=== PATIENT | female | born 1990 | race Caucasian/White ===

== ENCOUNTER 2017-09-05 16:42 | Inpatient (IN) | payer BC, MEDICAID ==
[2017-09-05 17:04] VITALS: BMI 21.7
[2017-09-05] MEDS ORDERED: Lactated Ringer's 1,000 ML IV SCH (17:15)
[2017-09-05 17:30] LABS: BASO # 0.1 K/uL (0.0-0.2); BASO % 0.7 % (0.0-2.0); EOS # 0.1 K/uL (0.0-0.7); EOS % 0.4 % (0.0-4.0); HEMOGLOBIN 10.5 g/dL (11.0-16.0); LYMPH # 2.8 K/uL (1.0-4.3); LYMPH % 17.4 % (20.0-40.0); MEAN CELL VOLUME 65.4 fL (81.0-99.0); MEAN CORPUSCULAR HEMOGLOBIN 20.1 pg (27.0-31.0); MEAN CORPUSCULAR HGB CONC 30.7 g/dL (33.0-37.0); MEAN PLATELET VOLUME 9.3 fL (7.2-11.7); MONO # 0.9 K/uL (0.0-0.8); NEUT # 11.9 K/uL (1.8-7.0); NEUT % 75.5 % (50.0-75.0); NRBC % 0.1 % (0.0-2.0); RBC 5.22 Mil/uL (3.80-5.20); RED CELL DISTRIBUTION WIDTH 18.6 % (11.5-14.5); WHITE BLOOD COUNT 15.8 K/uL (4.8-10.8)
--- NOTE | 2017-09-05 18:24 | OBADHP ---
Datetime: 09/05/2017 17:00 Admit Comment, IP Provider: chief complaint-leakki ng of fluid HPI y/o at 38.1 wga with c/o leaking of fluid since 4.30 pm Patient denies vaginal bleeding or loss of fluid has had ctx since 11am cxours eprenatal care with dr au' hx of anemia on iron PMH GERD PSH denies OBGYN HX Social hx denies tobacco,alcohol or illcit drug use Exam see exam section A/P 26 y/o at 38.wga with prom.early labor,gbs neg -admit -see orders -mangement as per dr angely au aware Pelvic Type - PN: Adequate Extremities - PN: Normal Abdomen - PN: Normal Back - PN: Normal Lungs - PN: Normal Heart - PN: Normal Neurologic - PN: Normal General - PN: Normal Amniotic Fluid Color, Provider: Clear Membranes, Provider: Ruptured Contraction Comments Provider: every 2-3min Gestation - Est Wks by US: 38.1 Pool Provider: Positive Nitrazine Provider: Positive Ferning Provider: Positive IP Hx Assessment: The History has been Reviewed and is Current Vital Signs Provider: Reviewed; Within Normal Limits IP Chief Complaint: Suspected ruptured membranes FHR Category Provider Fetus A: Category I Dilatation, Provider: 1 Effacement, Provider: 70 Station, Provider: -1 Genitourinary Exam: Abnormal DTRs - PN: Normal EGA AdmitDate IP: 38.1 IP Adm Impression: Term, intrauterine ; Ruptured Membranes IP Admit Plan: Admit to unit; Initiate labor protocol
[2017-09-05] MEDS ORDERED: Bupivacaine 0.125%/FentaNYL 200 ML EPI ONE (18:45)
[2017-09-05] MEDS ORDERED: Bupivacaine HCl 0.25% PF (10 ml) Inj ONE ×2 (18:45→20:40)
[2017-09-05 20:49] LABS: SQUAMOUS EPITHIAL < 1 /hpf (0-5); URINE BACTERIA RARE (<OCC); URINE BILIRUBIN NEGATIVE (NEGATIVE); URINE BLOOD NEGATIVE (NEGATIVE); URINE CLARITY Clear (Clear); URINE COLOR Yellow (YELLOW); URINE GLUCOSE (UA) NORMAL (Normal); URINE LEUKOCYTE ESTERASE NEG Leu/uL (Negative); URINE NITRATE NEGATIVE (NEGATIVE); URINE PROTEIN NEGATIVE (NEGATIVE); URINE UROBILINOGEN NORMAL mg/dL (0.2-1.0)
[2017-09-05] MEDS ORDERED: Measles, Mumps, and Rubella 0.5 ML VIAL SC ONE (21:40)
[2017-09-05] MEDS ORDERED: Oxycodone/Acetaminophen 5/325 mg Tab PO PRN (21:40)
--- NOTE | 2017-09-05 21:40 | OBADHP ---
Datetime: 09/05/2017 21:37 FHR - Baseline A Provider: 130 Dilatation, Provider: 10 Effacement, Provider: 100 Station, Provider: 0 Datetime: 09/05/2017 17:00 Admit Comment, IP Provider: chief complaint-leakki ng of fluid HPI y/o at 38.1 wga with c/o leaking of fluid since 4.30 pm Patient denies vaginal bleeding or loss of fluid has had ctx since 11am cxours eprenatal care with dr au' hx of anemia on iron PMH GERD PSH denies OBGYN HX Social hx denies tobacco,alcohol or illcit drug use Exam see exam section A/P 26 y/o at 38.wga with prom.early labor,gbs neg -admit -see orders -mangement as per dr angely au aware agrees with above EGA AdmitDate IP: 38.1
--- NOTE | 2017-09-05 21:41 | OBPN ---
Datetime: 09/05/2017 21:37 IP Progress Impression: Normal progression of labor IP Procedures: Sterile Vag Exam FHR - Baseline A Provider: 130 IP Progress Note Comment: pt was examined at bed side ve 10/100/0 anticip[ate Dilatation, Provider: 10 Effacement, Provider: 100 Station, Provider: 0 Datetime: 09/05/2017 17:00 Pool Provider: Positive Nitrazine Provider: Positive Ferning Provider: Positive Membranes, Provider: Ruptured Amniotic Fluid Color, Provider: Clear Contraction Comments Provider: every 2-3min Gestation - Est Wks by US: 38.1 Vital Signs Provider: Reviewed; Within Normal Limits FHR Category Provider Fetus A: Category I
[2017-09-06 08:02] LABS: BASO % 0.3 % (0.0-2.0); EOS % 0.3 % (0.0-4.0); LYMPH # 2.4 K/uL (1.0-4.3); LYMPH % 13.4 % (20.0-40.0); MEAN CELL VOLUME 64.9 fL (81.0-99.0); MEAN CORPUSCULAR HEMOGLOBIN 20.5 pg (27.0-31.0); MEAN CORPUSCULAR HGB CONC 31.7 g/dL (33.0-37.0); MEAN PLATELET VOLUME 9.8 fL (7.2-11.7); MONO # 0.9 K/uL (0.0-0.8); MONO % 5.1 % (0.0-10.0); NEUT # 14.7 K/uL (1.8-7.0); NEUT % 80.9 % (50.0-75.0); NRBC % 0.1 % (0.0-2.0); RBC 3.92 Mil/uL (3.80-5.20); RED CELL DISTRIBUTION WIDTH 18.2 % (11.5-14.5); WHITE BLOOD COUNT 18.2 K/uL (4.8-10.8)
[2017-09-06] MEDS ORDERED: Benzocaine/Menthol 20%-0.5% Topical Spray (60 ml) EXT PRN (09:42)
--- NOTE | 2017-09-06 20:07 | OBPPN ---
Datetime: 09/06/2017 20:05 PP Pain Prov: Within normal limits PP Nausea Prov: Denies PP Flatus Prov: Yes PP Abdomen/Uterus Prov: Normal PP Lochia Prov: Normal PP Extremities Prov: Normal PP Comments Phys Exam Prov: fudus below umblicus ext o edema,no calf ten PP Impression Prov: Normal progression PP Plan Prov: Continue present management PP Progress Note Prov: pt was seen at bed side, pain under control,no n/v, tolerating deit,voiding,m in lochi, flat+ ppd#1 reg deit cnc cont pp care cont painman Vital Signs Provider PP: Reviewed; Within Normal Limits
--- NOTE | 2017-09-06 20:09 | OBDS ---
DELIVERY PERSONNEL Nurse Wood Model Builder Certified: n/a Delivery Doctor: Benito Gaspar MD Scrub Nurse: n/bassem Supervisor Color Paste Mixing: Barbara Amin RN Anesthesiologist: DR BERNAL Forming Department End Finder: same Resident: DR. BENDER MATERNAL INFORMATION Delivery Anesthesia: Epidural Medications in Delivery: PITOCIN Estimated Blood Loss (ml): 400 Placenta Cultured: Yes Maternal Complications: None Provider Comments: due to ctg ii tracing and maernal exhaustion vaccum was applied. rml made befor. peads in the room. baby deliverdin bishop.cord gas taken placente to path_nd clean 9/9 no com LABOR SUMMARY EDC: 09/18/2017 00:00 No. Babies in Womb: 1 Attempted: No Labor Anesthesia: Epidural LABOR INFORMATION Onset of Labor: 09/05/2017 11:00 Complete Dilatation: 09/05/2017 20:30 Oxytocin: N/A Group B Beta Strep: Negative Steroids Given: None MEMBRANES Membranes Rupture Method: Spontaneous Rupture of Membranes: 09/05/2017 16:30 Length of Rupture (hrs): 5.52 Amniotic Fluid Color: Clear Amniotic Fluid Amount: Moderate Amniotic Fluid Odor: Normal STAGES OF LABOR Stage 1 hrs: 9 Stage 1 min: 30 Stage 2 hrs: 1 Stage 2 min: 31 Stage 3 hrs: 0 Stage 3 min: 2 Total Time in Labor hrs: 11 Total Time in Labor min: 3 VAGINAL DELIVERY Episiotomy: Right Mediolateral Laceration Extension: N/A Laceration Repair: Yes Laceration Repair Note: rpeaired with 2 vicry and 3 hromic Initial Vag Sponge Count: 10+1Lap Final Vag Sponge Count: 10+1Lap Initial Vag Sharps Count: 0 Final Vag Sharps Count: 4 Sponge Count Correct: Yes; Vaginal Sweep Performed Sharps Count Correct: Yes BABY A INFORMATION Delivery Date/Time: 09/05/2017 22:01 Method of Delivery: Vaginal Born in Route : No : N/A Forceps: N/A Vacuum Extraction: Successful Shoulder Dystocia : No ASSISTED DELIVERY BABY A Indication for Assisted Delivery: maternal exhaustion and CTG II Tracing Catheter Prior to Procedure: Yes Station Vacuum/Forcep Apply: +2 Position Vacuum/Forcep Apply: Left Occipital Anterior Vacuum Number of Pulls: 2 Vacuum Number of PopOffs: 1 Vacuum Maximum Pressure Obtained: 40 Reduce Pressure btwn Ctx: Yes Vacuum Door Slinger: kiwi pump Total Time Vacuum Applied: 30 sec SHOULDER DYSTOCIA BABY A Delivery Date/Time: 09/05/2017 22:01 PRESENTATION/POSITION BABY A Presentation: Cephalic Cephalic Presentation: Vertex Vertex Position: Left Occipital Anterior Breech Presentation: N/A PLACENTA INFORMATION BABY A Placenta Delivery Time : 09/05/2017 22:03 Placenta Method of Delivery: Spontaneous Placenta Status: Delivered SCORES BABY A Heart Rate 1 min: >100 bpm Resp Effort 1 min: Good Cry Reflex Irritability 1 min: Cough or Sneeze or Pulls Away Muscle Tone 1 min: Active Motion Color 1 min: Body [place], Extremities Blue SCORE 1 MIN: 9 Heart Rate 5 min: >100 bpm Resp Effort 5 min: Good Cry Reflex Irritability 5 min: Cough or Sneeze or Pulls Away Muscle Tone 5 min: Active Motion Color 5 min: Body [place], Extremities Blue SCORE 5 MIN: 9 INFANT INFORMATION BABY A Gestational Age at Delivery: 38.1 Gestational Status: Term Infant Outcome : Liveborn Infant Condition : Stable Infant Sex: Female IDENTIFICATION/MEDS BABY A ID Band Number: [id number] ID Band Location: Left Leg; Left Arm Sensor Applied: Yes Sensor Number: [id number] Sensor Location : Cord Clamp WEIGHT/LENGTH BABY A Infant Birthweight (gms): 2765 Infant Weight (lb): 6 Infant Weight (oz): 2 Infant Length Inches: 19.50 Infant Length cms: 49.5 CORD INFORMATION BABY A No. Cord Vessels: 3 Nuchal Cord : Around Neck x1, Loose Cord Blood Taken: Yes Suction: Mouth; Nose ASSESSMENT BABY A Infant Complications: None Physical Findings at Delivery: Within Normal Limits Respirations: Grunting Care By: DR PATRICK Transferred To: [facility]
[2017-09-07 08:38] VITALS: PULSE 62; RESP 18; TEMP 98; O2SAT 98
[2017-09-07] MEDS ORDERED: Influenza Virus Vaccine 45 mcg/0.5 ml Syr (36 months - 7 yrs) IM ONE (13:34)
[2017-09-07] MEDS ORDERED: Influenza Vaccine 60 mcg/0.5 mL SYR (4YR UP) IM ONE (14:30)
[2017-09-07 22:53] VITALS: BP 96/60
== END 2017-09-07 16:00 | disposition home or self-care (01) | DRG 775 ==
LOC: C.EROB 16:42 → C.4D 17:00 → C.4M 09-06 00:30
PROVIDERS: ADMIT Obstetrics & Gynecology; ATTEND Obstetrics & Gynecology
PROC: 10D07Z6 Extraction of Products of Conception, Vacuum, Via Natural or Artificial Opening (ICD-10-PCS; principal; 2017-09-05)
PROC: 0W8NXZZ Division of Female Perineum, External Approach (ICD-10-PCS; 2017-09-05)
DX: O99.02 Anemia complicating childbirth (principal); D64.9 Anemia, unspecified; O69.81X0 Labor and delivery complicated by cord around neck, without compression, not applicable or unspecified; O75.81 Maternal exhaustion complicating labor and delivery; Z3A.38 38 weeks gestation of pregnancy; Z37.0 Single live birth